=== PATIENT | male | born 1955 ===

== ENCOUNTER 2025-05-31 14:11 | Outpatient (AMB) | payer MEDICAID, SELFPAY ==
--- NOTE | 2025-05-31 14:41 | A.OFFVIS_ITS ---
Intake Visit Reasons: CVA headache HPI Comments Details: 69 years old man who was here without medical records other than a brief note from referring provider according to which she suffered from hypertension and diabetes. His into was performed with the help of an spanish medical interpreter and he was also not a good historian not knowing much details including the fact that he could not tell me which hospital he was admitted. He was probably admitted at [facility] as I did not find any records at [facility] or [facility] for his admission. He said that he was admitted there few months ago with episode of double vision and headache and dizziness. Apparently an MRI of brain was done that revealed some findings suggestive of intracranial hypotension including some abnormal enhancement of clivus. He said that he was there for 4 days but doctors were not sure what was going on. One day this head there was nothing wrong with him and the other day this suggested he should have a lumbar puncture. Listening to that, he left the hospital without telling anyone. I also noted that in 2023 he had a positive syphilis test. He said that he was treated with injection treatment for syphilis in October of this year. I could not independently confirmed. He also denied that he was having any eye pain dizziness or double vision that he was having few months ago. His only concern was forgetfulness stating that sometime he was forgetful. Review of Systems Narrative Constitutional:?No fever, chills, fatigue, weight loss, or night sweats. HEENT:?No headache, vision changes, hearing loss, nasal congestion, sore throat. Cardiovascular:?No chest pain, palpitations, orthopnea, PND, or leg swelling. Respiratory:?No cough, shortness of breath, wheezing, or hemoptysis. Gastrointestinal:?No nausea, vomiting, abdominal pain, diarrhea, or constipation. Genitourinary:?No dysuria, frequency, incontinence, or hematuria. Musculoskeletal:?No joint pain, stiffness, weakness, or muscle aches. Neurological:? Complain of forgetfulness Psychiatric:?No anxiety, depression, mood swings, sleep disturbance, or hallucinations. Endocrine:?No heat/cold intolerance, polydipsia, polyuria, or hair/skin changes. Hematologic/Lymphatic:?No easy bruising, bleeding, or lymphadenopathy. Integumentary (Skin):?No rash, lesions, itching, or color changes. Allergic/Immunologic:?No seasonal allergies, hives, or recurrent infections. Physical Exam Neuro Other: Mental Status: He is alert and awake with normal spontaneity of speech fluency comprehension and affect. He did not speak Lithuanian and into was performed with the help of an spanish medical interpreter. Cranial Nerves: CN II: Visual shah full to confrontation, visual acuity intact. CN III, IV, : Pupils equal, round, reactive to light and accommodation. Extraocular movements are normal. CN V: Facial sensation is normal. CN VII: Facial movements symmetrical. CN VIII: Hearing intact to bedside conversation is normal. CN IX, X: Palate elevates symmetrically. CN XI: Shoulder shrug and head turn symmetrical. CN XII: Tongue midline without atrophy or fasciculations. Motor: Bulk and tone normal in all extremities. No significant muscle weakness in arms and legs. No drift. Reflexes: Deep tendon reflexes 2+ and symmetric. Plantar response down-going bilaterally. Coordination: Mexced-fm-[id number] and xjhe-aa-fuax testing normal. No dysmetria. Gait and Station: No obvious gait abnormality. No ataxia or instability. Sensory: Intact to light touch, pinprick, and vibration. Romberg is negative. Extrapyramidal: Full facial expressions and blinking. No rigidity. Movements are appropriate with no tremor or abnormality. Speech: Normal; no dysarthria or tremor. Assessment & Plan Assessment & Plan (1) Cerebral microvascular disease: Code(s): I67.89 - Other cerebrovascular disease Category: Medical (2) MCI (mild cognitive impairment): Comment: MR brain WO at [facility] in Sep 2024: No acute abnormality, moderate MVD Code(s): G31.84 - Mild cognitive impairment of uncertain or unknown etiology Category: Medical Plan 69 years old man who has previous records were not available. What I gather today was that he had been treated for syphilis with intravenous antibiotics in either October of 2023 or , complain of double vision, right eye pain and dizziness few months ago and was probably admitted at [facility]. An MRI of brain might have been performed that according to 1 note revealed findings suggestive of abnormal enhancement and maybe intracranial hypotension. Lumbar puncture was proposed but patient left the hospital without having that test. Now he was here for neurology consultation but stated that double vision, dizziness, an eye pain were resolved. He also saw his eye doctor and was not noted to have any explanation. His only concern was forgetfulness. I found an MRI of brain report in [facility] done in September of 2024 which revealed moderate chronic microvascular ischemic changes, which could explain forgetfulness. As far as other findings described in his records, they might have been found in [facility] imaging. Those findings might have been related to syphilis though exact etiology is unclear and his symptoms or already resolved. He was reassured and educated. I ordered sed rate and syphilis serology. I would see him back in few weeks time and would tried to gather records from [facility]. Orders: Orders Syphilis Screen Today G31.84 - Mild cognitive impairment of uncertain or unknown etiology Erythrocyte Sedimentation Rate Today G31.84 - Mild cognitive impairment of uncertain or unknown etiology Coding Level of Care Code New Pt Level 5 (50826) Diagnoses Cerebral microvascular disease I67.89 MCI (mild cognitive impairment) G31.84 Time Spent (min) 65
--- OUTSIDE RECORDS SUMMARY | 2025-05-31 16:12 | XMS_ITS | Clinical Summary ---
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 Name Role Phone Unavailable Primary Care Provider Unavailabl e Social History Tobacco Use Types Packs/Day Years Used Date Smoking Tobacco: Never Assessed Sex and Gender Information Value Date Recorded Sex Assigned at Not on file Legal Sex Male 9:34 AM EDT Gender Identity Not on file Sexual Orientation Not on file Plan of Treatment Health Maintenance Due Date Last Done Comments Colorectal Cancer Screening: Colonoscopy 1955 Depression Screening 06/30/2024 Zoster Vaccines (2 of 2) 10/22/2024 08/27/2024 Falls Risk Assessment 10/23/2024 Social Influencers of Health Screening 10/23/2024 COVID-19 Vaccine (2 - 2024-2 6 season) 2025 09/29/2022 Influenza Vaccine (#1) 2025 Hypertension/CHF/CAD Annual BMP Blood Test 10/08/2025 10/08/2024 Cholesterol Screening (Lipid Panel) 10/08/2029 10/08/2024, 10/08/2024 RSV Immunization Adult Patients (1 - 1-dose 75+ series) 2030 DTaP,Tdap,and Td Vaccines (2 - Td or Tdap) 04/21/2034 04/21/2024 Hepatitis C Screening Completed 04/21/2024 MMR Vaccines Aged Out 04/21/2024 No longer eligi ble based on patient's age to complete this topic Hepatitis B Vaccines Completed 08/27/2024, 06/09/2024 Pneumococcal Vaccine: 50+ Years Completed 10/08/2024 HIB Vaccines Aged Out No longer eligi ble based on patient's age to complete this topic HPV Vaccines Aged Out No longer eligi ble based on patient's age to complete this topic Hepatitis A Vaccines Aged Out No long er eligible based on patient's age to complete this topic IPV Vaccines Aged Out No longer eligi ble based on patient's age to complete this topic Meningococcal ACWY Vaccine Aged Out N o longer eligible based on patient's age to complete this topic Meningococcal B Vaccine Aged Out No l onger eligible based on patient's age to complete this topic RSV Immunization Patients Under 20 months Aged Out No longer eligible b ased on patient's age to complete this topic Varicella Vaccines Aged Out No longer eligible based on patient's age to complete this topic
== END 2025-05-31 15:18 | disposition home or self-care (01) ==
PROVIDERS: PCP Registered Nurse; Visit Provider Psychiatry & Neurology Neurology
DX: I67.89 Other cerebrovascular disease (principal); G31.84 Mild cognitive impairment of uncertain or unknown etiology
CPT/HCPCS: 99205

== ENCOUNTER → 2025-05-31 14:11 | Outpatient (BNVA) | payer MEDICAID, SELFPAY | PROVIDERS: PCP Registered Nurse; Visit Provider Psychiatry & Neurology Neurology | DX: I67.89 Other cerebrovascular disease (principal); R41.3 Other amnesia | CPT/HCPCS: 99202 ==